=== PATIENT | female | born 1990 | race Hispanic/Latino ===

== ENCOUNTER → 2019-08-24 | Day surgery (SDC) | payer OTHER ==
[2019-08-23 17:07] LABS: BASOPHILS % 0.1 % (0.0-1.0); EOSINOPHILS % 0.3 % (0.0-6.0); HEMATOCRIT 45.2 % (34.2-44.1); HEMOGLOBIN 14.8 g/dL (12.0-16.0); LYMPHOCYTES # (AUTO) 1.1 (1.0-3.2); LYMPHOCYTES % 13.9 % (18.0-39.1); MEAN CORPUSCULAR HEMOGLOBIN 28.3 pg (28-32); MEAN CORPUSCULAR HGB CONC 32.7 g/dL (31-35); MEAN CORPUSCULAR VOLUME 86.4 fL (81-99); MONOCYTES # (AUTO) 0.3 (0.2-0.8); MONOCYTES % 3.5 % (4.4-11.3); NEUTROPHILS # (AUTO) 6.6 (2.1-6.9); NEUTROPHILS % 82.1 % (38.7-80.0); PLATELET COUNT 127 x10e3/uL (140-360); RED BLOOD COUNT 5.23 x10e6/uL (3.6-5.1); RED CELL DISTRIBUTION WIDTH 12.8 % (11.7-14.4)
[2019-08-23 17:28] LABS: ANION GAP 15.1 mmol/L (8-16); BLOOD UREA NITROGEN 17 mg/dL (7-26); BUN/CREATININE RATIO 23 (6-25); CALCIUM 9.4 mg/dL (8.4-10.2); CARBON DIOXIDE 22 mmol/L (22-29); CHLORIDE 104 mmol/L (98-107); CREATININE, SERUM 0.74 mg/dL (0.57-1.11); EST GLOMERULAR FILTRATION RATE > 60 ML/MIN (60-); GLUCOSE 81 mg/dL (74-118); POTASSIUM 4.1 mmol/L (3.5-5.1); SODIUM 137 mmol/L (136-145)
[~2019-08-24] MED LIST: BACITRACIN 50,000 UNIT VIAL ONE; BACTRIM DS TAB1 EACH PO; BUPIVACAINE 0.5%/EPI 30 ML SDV INJ ONE; CLINDAMYCIN PO; FENTANYL CITRATE/PF 100MCG/2 ML INJ ONE; HYDROGEN PEROXIDE 120 ML BTL ONE; LIDOCAINE HCL 2% LOCAL INJ 5 ML SDV VIAL INJ ONE; MIDAZOLAM HCL 2 MG/2 ML VIAL ONE; MUPIROCIN 2% OINT 22 GM TUBE ONE; MYCOPHENOLATE500 MG PO; ONDANSETRON HCL INJ 2MG/ML 2ML 2 MG/ML VIAL ONE; PLAQUENIL200 MG PO; PREDNISONE10 MG PO; PROPOFOL IV EMULSION 10 MG/ML 20 ML VIAL ONE; TRENTAL PO; TYLENOL WITH C1 EACH PO
[2019-08-24 10:25] VITALS: BP 138/83
--- NOTE | 2019-08-24 10:42 | Operative Report ---
DATE OF PROCEDURE: 08/24/2019 SURGEON: Salbador Neff MD PREOPERATIVE DIAGNOSES: Left axillary abscess/fluid collection. Lupus with immunosuppression. POSTOPERATIVE DIAGNOSES: Left axillary abscess/fluid collection. Lupus with immunosuppression. PROCEDURES PERFORMED: Incision and drainage of abscess and debridement of necrotic tissue, left axillary region. ANESTHESIA: MAC. ESTIMATED BLOOD LOSS: Minimal. DRAINS: None. COMPLICATIONS: None. 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 The abscess has significantly decreased in size. However, now there is an area of fluctuance. She continued to complain of pain along the inner part of the left arm and she was admitted now for drainage. INTRAOPERATIVE FINDINGS: The patient had a serous fluid collection in the palpable left axillary abscess. The abscess appeared to be sterile at this point, but the cavity contained granulation tissue that was debrided and the cavity packed. DESCRIPTION OF PROCEDURE: With the patient lying on the operative table in the supine position, after administration of MAC, she was prepped and draped for excision for incision and drainage of left axillary abscess. The left eye was abducted. The palpable abscess just lateral to the axillary area in the proximal most upper arm contiguous with the axilla, was infiltrated with 0.25% Marcaine with epinephrine, and then an incision was made medially and we drained some severe purulent fluid. Aerobic and anaerobic cultures were taken. The cavity contained some granulation tissue, it was then debrided down to viable tissue with a combination of sharp and cautery. The wound was irrigated and then the cavity packed with half-inch iodoform gauze. Sterile dressing was applied. The patient tolerated the procedure well and taken to recovery room in stable condition. MD SAPPHIRE Reed/ANNAMARIEL /[id number]
== END | disposition home or self-care (01) ==
LOC: OR 06:50
PROVIDERS: ATTEND Surgery
DX: L02.412 Cutaneous abscess of left axilla (principal); L93.0 Discoid lupus erythematosus; Z01.812 Encounter for preprocedural laboratory examination
CPT/HCPCS: 10061; 36415; 80048; 81025; 85025; 87071; 87075; 87205; J2001; J2250; J2405; J2704; J3010